=== PATIENT | female | born 1940 | race Caucasian/White ===

== ENCOUNTER 2021-10-01 07:14 | Outpatient (CLI) | payer BC, SELFPAY ==
--- NOTE | 2021-10-01 08:53 | W.ANESCHARGE ---
Anesthesia Charges Start Date/Time Anesthesia Start Date: 10/01/21 Anesthesia Start Time: 08:05 Stop Date/Time Anesthesia Stop Date: 10/01/21 Anesthesia Stop Time: 08:50 Summary Emergency: No Extremes of Age: Over 70-CPT [id number]
--- NOTE | 2021-10-01 10:06 | W.ANESCHARGE ---
Anesthesia Charges Start Date/Time Anesthesia Start Date: 10/01/21 Anesthesia Start Time: 08:05 Stop Date/Time Anesthesia Stop Date: 10/01/21 Anesthesia Stop Time: 08:50 Summary Emergency: No
== END 2021-10-01 07:15 | disposition home or self-care (01) ==
PROVIDERS: PCP Family Medicine; Visit Provider Surgery
DX: K92.1 Melena (principal); K63.5 Polyp of colon; K57.30 Diverticulosis of large intestine without perforation or abscess without bleeding
CPT/HCPCS: 45385; 811; 88305; 99100; J2704

== ENCOUNTER 2021-10-01 14:13 | Outpatient (CLI) | payer BC, SELFPAY | END 2021-10-01 14:14 | disposition home or self-care (01) | LOC: AMB 10-08 09:15 | PROVIDERS: PCP Family Medicine; Visit Provider Family Medicine | DX: R11.2 Nausea with vomiting, unspecified (principal); R68.83 Chills (without fever) | CPT/HCPCS: A0425; A0427 ==

== ENCOUNTER 2021-10-01 14:39 | Emergency (ER) | payer BC, SELFPAY ==
[2021-10-01 14:43] VITALS: BP 138/95; PULSE 81; TEMP 37.2; O2SAT 92; BMI 25.2
[2021-10-01 15:00] VITALS: BP 131/94
--- NOTE | 2021-10-01 15:11 | ED_ITS ---
HPI - Nausea/Vomiting/Diarrhea General Time Seen by Provider: 15:10 Date Seen: 10/01/21 Chief complaint: Nausea/Vomiting Stated complaint: Dizzy, nauseous after colonoscopy Time Seen by Provider: 10/01/21 15:04 History of Present Illness HPI Narrative: This 81-year-old female comes in by ambulance because of nausea and lightheadedness. She had a colonoscopy this morning with a bowel prep prior to that. During this time she had expected diarrhea but she was also vomiting. The colonoscopy went well. She reports that there were 3 polyps that were removed and sent to pathology. She comes in by a ambulance to place an IV and gave her 4 mg of Zofran. She arrives with normal vital signs. Related Data Allergies Allergy/AdvReac Type Severity Reaction Status Date / Time trimethoprim Allergy Intermediate Rash Verified 09/14/21 09:41 diphenhydramine Allergy Mild Hives Verified 09/14/21 09:41 Sulfa drugs Allergy Intermediate Rash Uncoded 09/14/21 09:41 Review of Systems Status of ROS: Reports: 10 or more systems reviewed and unremarkable except as noted in History and below Narrative: Constitutional: No fevers, no weight gain or loss. Eyes: No discharge. No vision changes. HENT: No congestion, no sore throat, no ear pain. Cardiovascular: No chest pain, no palpitations. Respiratory: No shortness of breath, no wheezes, no cough. Gastrointestinal: No abdominal pain. Vomiting and diarrhea as part of bowel prep for colonoscopy. Genitourinary: No dysuria, no hematuria. Musculoskeletal: Normal range of motion. Skin: No rashes, no pruritis. Neurological: No dizziness, weakness, sensory change, speech change. Endo/Heme/Allergies: No bruising or bleeding. No polydipsia. Pysch: no suicidality, no anxiety, no insomnia. All other systems reviewed and are negative. [facility] Social History Smoking Status: Former smoker What tobacco products do you use: cigarettes Smoking quit date/years: >15 years ago Do you use any of these nicotine containing products: None Second hand tobacco smoke exposure: No How often do you have a drink containing alcohol: never How often do you have six or more drinks on one occasion: Never AUDIT-C Alcohol total score: 0 Non-prescribed substance use: denies use Exam Narrative: Exam Narrative: Constitutional: Well-developed, well-nourished, no acute distress. HEENT: Normocephalic, atraumatic. Neck: Normal range of motion. Nontender. Supple. Heart: Regular. No murmurs. Normal rate. Intact distal pulses. Lungs: Clear to auscultation. No chest discomfort. No wheezes, rhonchi, or rales. Abdomen: Normal bowel sounds. Nontender. No rebound tenderness. Genitalia: Deferred. Back: No midline tenderness. Normal range of motion. Extremities: Normal range of motion. No injury. Skin: Intact. No rash. Warm. No erythema or pallor. Neurologic: No altered sensation. No weakness. Alert and oriented. Psychiatric: No suicidality. No anxiety or depression. No insomnia. Nursing notes and vitals signs are reviewed. Const: Vital Signs, click to edit/add: Vital Signs - 24 hr 10/01/21 14:43 Temperature 98.9 F Pulse Rate [Left P ulse Oximeter] 81 Blood Pressure [Le ft Upper Arm] 138/95 H Pulse Oximetry 92 Course Vital Signs Vital signs: Initial Vital Signs Temperature 98.9 F 10/01/21 14:43 Temperature Source Temporal Artery Scan 10/01/21 14:43 Pulse Rate 81 10/01/21 14:43 Blood Pressure 138/95 H 10/01/21 14:43 Blood Pressure Mean 109 10/01/21 14:43 Blood Pressure Position Supine 10/01/21 14:43 Pulse Oximetry 92 10/01/21 14:43 Oxygen Delivery Method 10/01/21 14:43 Vital Signs Temperature 98.9 F 10/01/21 14:43 Pulse Rate 81 10/01/21 14:43 Blood Pressure 138/95 H 10/01/21 14:43 Pulse Oximetry 92 10/01/21 14:43 Temperature 98.9 F 10/01/21 14:43 Pulse Rate 81 10/01/21 14:43 Blood Pressure 138/95 H 10/01/21 14:43 Pulse Oximetry 92 10/01/21 14:43 MDM - Nausea/Vomiting/Diarrhea MDM Narrative Medical decision making narrative: This patient comes in feeling lightheaded and nauseated after having a colonoscopy. She had diarrhea as expected as part of the bowel prep but also had vomiting. An IV had been established by a ambulance so she received a L of normal saline intravenously here. She arrives with vital signs in normal range. She is not reporting symptoms of lightheadedness and vomiting or nausea currently. She was able to take fluids orally. She is OK to return home to continue current plans. Discharge Plan Discharge Clinical Impression: Dehydration Patient Disposition: Home, Self-Care Condition: Stable Instructions: Dehydration (ED) Additional Instructions: Volume depletion after colonoscopy. Continue current plans. Follow up with MD or return if worsening symptoms happen. Follow Up/Referrals: Zrui Celeste MD [Primary Care Provider] - Stand Alone Forms: [employer] Info Instructions
[2021-10-01 15:30] VITALS: BP 126/58; PULSE 81; O2SAT 91
[2021-10-01 16:00] VITALS: BP 107/51; PULSE 77; O2SAT 91
[2021-10-01] MEDS: 0.9 % SODIUM CHLORIDE 1000 ml 1,000 ML IV (16:05)
[2021-10-01 16:30] VITALS: BP 124/53; PULSE 78; O2SAT 90
== END 2021-10-01 16:53 | disposition home or self-care (01) ==
PROVIDERS: Emergency Provider Emergency Medicine Emergency Medical Services; PCP Family Medicine
DX: E86.0 Dehydration (principal); E86.9 Volume depletion, unspecified
CPT/HCPCS: 96360; 99283; 99284; J7030

== ENCOUNTER 2021-12-20 16:08 | Outpatient (RCR) | payer BC, SELFPAY | END 2022-11-24 12:41 | disposition home or self-care (01) | LOC: MOW 16:08 | PROVIDERS: PCP Family Medicine; Visit Provider Family Medicine | DX: Z76.0 Encounter for issue of repeat prescription (principal) | CPT/HCPCS: S5170 ==

== ENCOUNTER 2024-07-30 16:26 | Outpatient (CLI) | payer MEDICARE, BC, SELFPAY | END 2024-07-30 16:27 | disposition home or self-care (01) | LOC: AMB 08-01 10:04 | PROVIDERS: PCP Family Medicine; Visit Provider Student in an Organized Health Care Education/Training Program | DX: S09.90XA Unspecified injury of head, initial encounter (principal); W01.198A Fall on same level from slipping, tripping and stumbling with subsequent striking against other object, initial encounter; Y93.H2 Activity, gardening and landscaping; Y92.007 Garden or yard of unspecified non-institutional (private) residence as the place of occurrence of the external cause | CPT/HCPCS: A0425; A0427 ==

== ENCOUNTER 2024-07-30 16:57 | Emergency (ER) | payer MEDICARE, BC, SELFPAY ==
--- OUTSIDE RECORDS SUMMARY | 2024-07-30 16:59 | XMS_ITS | Clinical Summary ---
Author Organization [employer] [facility] Address Counts include 234 beds at the [facility] [place] [address] Care Team Providers Care Income Tax Preparer Name Role Phone Zuri Celeste MD Primary Care Provider [facility], [place] Unavailable Allergies Active Allergy Reactions Criticality Noted Date Comments Diphenhydramine Hives High Sulfamethoxazole-Trimethoprim Rash Medium 2009 Medications miscellaneous medical supply miscIndications:H TN (hypertension) As directed. 1 blood pressure CUFF for home use 1 Each 11/19/19 20 Active medication order composerIndicatio ns:Lobular breast cancer, right (HC) Breast prosthetic 1 Device 05/24/19 23 Active Post Mastectomy BraIndications:Lo bular breast cancer, right (HC) Right lobular breast cancer 6 Packet 05/24/19 23 Active aspirin (ECOTRIN) 81 mg enteric coated tablet Take 81 mg by mouth once daily. Active acetaminophen SR (Tylenol Arthritis Pain) 650 mg Extended-Release tablet Take 1,300 mg by mouth 2 times daily 12 hours apart. Active acetaminophen SR (Tylenol Arthritis Pain) 650 mg Extended-Release tablet Take 650 mg by mouth once daily in the afternoon. Active omeprazole (PRILOSEC) 20 mg Delayed-Release capsuleIndication s:Stricture and stenosis of esophagus,Dysphag ia, unspecified type Take 1 Capsule (20 mg) by mouth once daily before a meal. 90 Capsule 3 09/06/19 24 Active mirtazapine (REMERON) 15 mg tabletIndications :Anxiety Take 1 Tablet (15 mg) by mouth at bedtime. 90 Tablet 3 09/06/19 24 Active cyanocobalamin (Vitamin B-12) 1,000 mcg tabletIndications :Low vitamin B12 level Take 1 Tablet (1,000 mcg) by mouth once daily. 90 Tablet 3 09/07/19 24 Active FLUoxetine (PROZAC) 40 mg capsuleIndication s:Anxiety TAKE ONE CAPSULE BY MOUTH ONE TIME DAILY 90 Capsule 05/17/19 25 Active FLUoxetine (PROZAC) 20 mg capsuleIndication s:Anxiety TAKE ONE CAPSULE BY MOUTH EVERY DAY IN THE MORNING. 90 Capsule 06/02/19 25 Active amLODIPine 5 mg tabletIndications :HTN (hypertension) TAKE ONE TABLET BY MOUTH ONE TIME DAILY 90 Tablet 06/23/19 25 Active pravastatin 80 mg tabletIndications :Hyperlipidemia, unspecified hyperlipidemia type,Coronary artery disease involving [place] coronary artery, unspecified whether angina present, unspecified whether [place] or transplanted heart TAKE ONE TABLET BY MOUTH ONE TIME DAILY AT BEDTIME 90 Tablet 07/17/19 25 Active pravastatin (PRAVACHOL) 80 mg tabletIndications :Hyperlipidemia, unspecified hyperlipidemia type,Coronary artery disease involving [place] coronary artery, unspecified whether angina present, unspecified whether [place] or transplanted heart Take 1 Tablet (80 mg) by mouth at bedtime. 90 Tablet 1 09/06/19 24 2024 Discontinued Active Problems Problem Noted Date Diagnosed Date S/P Left hip hemiarthroplasty DOS:09/18/2022 Dr. Mora Fortune 10/28/2022 Subcapital fracture of left hip 09/18/2022 HTN (hypertension) 05/20/2021 Anxiety 05/20/2021 Lobular breast cancer, right 05/20/2021 Overview (09/18/2022): 2009: 2 tumors in right breast. Treated with mastectomy and anastrozole. 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 Delgado, dermatology Osteopenia determined by x-ray 09/29/2015 Overview (09/29/2015): Osteopenia with increased risk hip fracture per FRAX score 2015 CKD (chronic kidney disease) stage 3, GFR 30-59 ml/min 03/25/2015 Overview (05/03/2018): CREATININE (mg/dL) Date Value 05/02/2018 1.08 GFR 49 Osteoarthritis of hands, bilateral 03/24/2015 Lobular breast cancer 10/09/2014 ACP (advance care planning) 03/18/2014 Overview (06/16/2016): HCD received, see HCD 06/13/16 MARÍA Aggarwal Advance Care Planning Educator [phone] Atrial fibrillation 05/08/2012 Mucoid cyst of joint 03/23/2010 Routine general medical exam ination at a health care facility 02/16/2010 Overview (02/16/2010): dexa normal 06/2009 Adhesive capsulitis of shoulder 09/02/2009 CAD (coronary artery disease) 02/10/2009 Overview (02/11/2009): -3 months exertional chest pain,ECG had some ST depression -02/10/2009 cor angio--> 2 Tandem LISSY stents, 3 total balloons to proximal and mid LAD, balloon to D2 Other and unspecified hyperlipidemia 02/10/2009 Overview (02/10/2009): -Goal LDL < 70 -Chol: 223, T, HDL: 66, LDL: 133 -02/10/2009 started on simvastatin -already on fish oil Hallux valgus (acquired) 03/13/2007 Unspecified essential hypertension 01/30/2007 Paroxysmal supraventricular tachycardia 01/31/20 07 Overview (01/30/2007): short runs of supraventricular tachycardia noted on holter 1999. responding to bete odessa. note echocardiogram unremarkable Resolved Problems Problem Noted Date Diagnosed Date Resolved Date Changing skin lesion 03/15/2013 014 Lobular breast cancer 03/09/20092014 Overview (03/09/2009): 2 areas right breast, ER/UT positive, HER2 amplification negative Chest pain on exertion 02/10/200903/17 Overview (02/10/2009): -3 month hx of chest pain and shortness of breath on exertion -02/10/[address] depression in inferior-lateral leads, After walking up and down the [place] with chest pain, [address] depression in leads V5 and V6. -cor angio 02/10/2009 Overweight(278.02) 02/10/2009 0 Overview (02/10/2009): -BMI 31 Chest pain, unspecified 02/06/200906/2008 Skin lesion 02/06/2009 03/18/2014 Blood in stool 02/06/2009 03/17/2009 Encounters Date Type Department Care Team Description 07/15/2024 Refill [facility] [address] [place] [address] Zuri Celeste MD Refill Request (Pravastatin) 06/20/2024 11:30 AM CDT Office Visit [facility] [address] [place] [address] Laurence Carter PA Fall (06/16/24) 06/20/2024 Refill [facility] [address] [place] [address] Zuri Celeste MD Refill Request (Amlodipine) 06/20/2024 Nurse Triage [facility] [address] [place] [address] Laurence Carter PA Pain (Left hip and back) 06/20/2024 Travel 06/04/2024 Refill [facility] [address] [place] [address] Zuri Celeste MD Refill Request (Fluoxetine) 05/31/2024 Refill [facility] [address] [place] [address] Zuri Celeste MD Refill Request (Fluoxetine) 05/16/2024 Refill [facility] [address] [place] [address] Zuri Celeste MD Refill Request (Fluoxetine) from Last 3 Months Immunizations Immunization Administration Dates Next Due AMB INFLUENZA IIV3 (AGE 65+ YRS) PF (Flu Clinic Only) 01/25/2017 AMB Influenza, IIV3 (Age >=3 years)(Flu Clinic Only) 01/24/2011 Amb Influenza, Inact (High-d ose) (Flu Clinic Only) 12/18/2013 COVID-19 vaccine (Moderna 100mcg/0.5mL) PF, MDV 05/06/2020,04/08/2020 Influenza A (H1N1), Inactiva maria l (Age >=3 Years) 03/17/2009 Influenza RIV4 (Age 18+ Year s) PRESERV FREE 01/24/2019 Influenza, High-dose Inactivated 03/30/2016,10/2014 Influenza, High-dose Quadriv alent Inactivated 01/11/2021 Influenza, IIV3 (Age >=3 years) 01/12/20 10,03/17/2009,02/05/2008,2006,01/30/2006 Influenza, IIV4 (Age 6-35 Mos) 01/03/2013 Influenza, Inactivated AIIV4 (Age 65+ Years) Preserv Free 01/31/2022,01/15/2020 Influenza, Inactivated IIV3 (Age 65+ Years) Preserv Free 05/02/2018 Pneumococcal Poly,23-Valent (Pneumovax) 02/05/2008 Pneumococcal conj 13-Valent (Prevnar 13) 03/31/2015 Td, Preservative Free (age > = 7 Years) 09/14/2005 Tdap 05/24/2022,03/07/2012 Zoster (Zostavax-ZVL, live) 03/27/2009 Family History Medical History Relation Name Comments Hyperlipidemia Brother 1 Alcohol/Drug Brother 2 Heart Disease Father Cancer-breast Maternal Aunt Cancer-breast Paternal Aunt Cancer-breast Sister 1 Hyperlipidemia Sister 1 Cancer-breast Sister 2 Relation Name Status Comments Brother 1 Brother 2 Father (Age 63) [place] Maternal Aunt Mother parkinsons dise ase Paternal Aunt Sister 1 Sister 2 Social History Tobacco Use Types Packs/Day Years Used Date Smoking Tobacco: Former Cigarettes 1 3 0 03/27/1966 - 03/27/1969 Smokeless Tobacco: Never Tobacco Cessation:Counseling Given: Yes Comments:1 ppd. quit when she was 30. Alcohol Use Standard Drinks/Week Comments Not Currently 0 (1 standard drink = 0.6 oz pur e alcohol) PHQ-2 Answer Date Recorded PHQ-2 TOTAL SCORE 0 09/06/2023 Social Connections Answer Date Recorded Frequency of Communication with Friends and Fami ly 0 11/15/2022 Financial Resource Strain Answer Date R ecorded Difficulty of Paying Living Expenses 3 11/15/2022 Difficulty of Paying Living Expenses Not on file 11/15/2022 Food Insecurity Answer Date Recorded Worried About Running Out of Food in the Last Ye ar 1 11/15/2022 Transportation Needs Answer Date Record ed Lack of Transportation (Medical) 1 11/15/2022 Housing Stability Answer Date Recorded Unable to Pay for Housing in the Last Year 1 11/15/2022 Comments No Sex and Gender Information Value Date Recorded Sex Assigned at Not on file Legal Sex Female 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 Gender Identity Not on file Sexual Orientation Not on file 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 Not on file Not on file Not on file Obstetrics History Para Term AB IAB SAB Ectopic Multiple Livin g Live Births 6 5 5 1 1 4 Date Outcome GA Total Labor Labor/2nd/3rd Weight Sex Type Anes PTL Sudha A1 A5 Name Clin Term Term Term Term Term SAB Last Filed Vital Signs Vital Sign Reading Time Taken Comments Blood Pressure 145/82 06/20/2024 11:24 AM CDT Pulse 85 06/20/2024 11:24 AM CDT Temperature 36.6 C (97.8 F) 12/06/2022 1:02 PM CDT Respiratory Rate 16 12/06/2022 1:02 PM CDT Oxygen Saturation 95% 06/20/2024 11:24 AM CDT Inhaled Oxygen Concentration - - Weight 69.9 kg (154 lb) 12/20/2023 10:44 AM CDT Height 158 cm (5' 2.21) 09/06/2023 1:16 PM CDT Body Mass Index 27.98 09/06/2023 1:16 PM CDT Plan of Treatment Upcoming Encounters Date Type Department Care Team (Late st Contact Info) Description 09/12/2024 9:10 AM CDT Office Visit [facility] [address] [place] [address] Zuri Celeste MD [address] [place] [address] Health Maintenance Due Date Last Done Comments Zoster (shingles) series for age 50+ (2 of 3) 05/22/2009 03/27/2009 RSV vaccine for adults or (1 - 1-dose 75+ series) 01/04/2015 COVID-19 vaccine series ( season) 2023 02/15/2021, 05/06/2020, 04/08/2020 BMI (ht and wt on same day) for age 18+ 09/05/2024 09/06/2023, 05/24/2022, 05/20/2021, Additional history exists Depression screening for age 12+ 09/06/2024 09/07/2023, 09/07/2023, 09/06/2023, Additional history exists Medicare Wellness for age 65+ 09/06/2024, 05/24/2022, 05/20/2021, Additional history exists Influenza Vaccine (Season Ended) 2024 01/31/2022, 01/15/2020, 01/24/2019, Additional history exists Tetanus booster 05/24/2032 05/24/2022, 02/24, 09/14/2005 Pneumococcal series for age 50+ Completed 6, 02/05/2008 DEXA/DXA scan for age 65+ Completed 2017, 09/17/2015, 07/23/2009 Tdap Completed 05/24/2022, 03/07/2012 Medical Devices Implanted Type Area Applications Processor Device Identifier Shelf Expiration Date Model / Serial / Lot Sleeve Hip +4 Tandem - [id number] Implanted:Qty: 1 on 09/18/2022 by Mora Fortune MD at [facility] Total Joint Left: Hip [employer] 12/27/2031 [id number] / / [id number] Head Hip Od45mm Tandem Unipolar Co Cr - [id number] Implanted:Qty: 1 on 09/18/2022 by Mora Fortune MD at [facility] Total Joint Left: Hip [employer] 08/16/2032 [id number] / / [id number] Cable Hip 2mm [facility] [employer] Vitallium - [id number] Implanted:Qty: 1 on 09/18/2022 by Mora Fortune MD at [facility] Left: Hip [employer] 05/28/2027 [id number] / / [id number] Stem Hip Sz 5 Anthology Std [employer]ors - [id number] Implanted:Qty: 1 on 09/18/2022 by Mora Fortune MD at [facility] Left: Hip [employer] 12/14/2031 [id number] / / [id number] Procedures Procedure Name Priority Date/Time Associated Diagnosis Comments XR DXA BONE DENSITY 2 SITES AXIAL Routine 09/11/2017 10:22 AM CDT Menopause from Last 3 Months or Most Recently Relevant to Health Maintenance Results * (ABNORMAL) XR DXA BONE DENSITY 2 SITES AXIAL (09/11/2017 10:22 AM CDT) Anatomical Region Laterality Modality Spine, HIPS, HIPL, HIPR Other Narrative 09/15/2017 4:40 PM CDT Please see scanned document for results of this study. 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 POLST 09/12/2023 POLST 01/15/2020 POLST 01/15/2020 Healthcare Directive 04/17/2019 12:00 AM Healthcare Directive 06/17/2016 2:48 PM POLST 01/20/2020 7:11 PM POLST 01/20/2020 7:11 PM * Full Code (Latest Code Status on File) Date Activated Date Inactivated Comments 09/19/2022 1:28 PM 09/21/2022 12:16 PM Question Answer Comments Code Status Discussion: Reviewed Preferences * Full Code Date Activated Date Inactivated Comments 09/18/2022 8:43 AM 09/19/2022 1:28 PM Question Answer Comments Code Status Discussion: Unable to Assess Preferences, Provider to review later * Full Code Date Activated Date Inactivated Comments 09/18/2022 8:43 AM 09/18/2022 8:43 AM Question Answer Comments Code Status Discussion: Reviewed Preferences * Full Code Date Activated Date Inactivated Comments 02/17/2020 12:54 PM 02/17/2020 3:34 PM Question Answer Comments Code Status Discussion: Not Discussed * Full Code Date Activated Date Inactivated Comments 02/10/2009 1:00 PM 02/11/2009 3:40 PM Care Teams Income Tax Preparer Relationship Specialty Start Date End Date Zuri Celeste MD [address] [place] [address] PCP - General Family Practice 03/13/[address] [address] 10/11/22
[2024-07-30 17:08] VITALS: BP 166/80; PULSE 78; RESP 16; TEMP 36.4; O2SAT 98
--- NOTE | 2024-07-30 17:34 | CRLHL7_ITS ---
For Patients: As a result of the Cures Act, medical imaging exams and procedure reports are released immediately into your electronic medical record. You may view this report before your referring provider. If you have questions, please contact your health care provider. INDICATION: Face injury from Fall TECHNIQUE: CT maxillofacial without i.v. contrast. Coronal and sagittal reformats were obtained. COMPARISON: None FINDINGS: Bone: No acute fractures or aggressive bone lesions are identified. Joint: The temporomandibular joints are unremarkable in appearance. 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 Mild mucosal thickening is seen in the anterior right ethmoid air cells. Hypoplasia of the right frontal sinus is noted. The ostiomeatal units are patent. The nasal turbinates are normal. The nasal septum is midline and intact. Orbit: The patient is status post prior bilateral cataract removal. The visualized orbits are grossly unremarkable. Soft tissue: Soft tissue swelling with soft tissue gas and subcutaneous hematoma is present over the left frontal region and left temporal region. IMPRESSION: 1. No acute osseous injuries or abnormalities are seen. Dictated by Julio Carias MD @ 07/30/2024 7:16:53 PM Please note that all CT scans at this facility use dose modulation, iterative reconstruction, and/or weight-based dosing when appropriate to reduce radiation dose to as low as reasonably achievable. Dictated by: Julio Carias MD @ 07/30/2024 19:18:23 (Electronically Signed)
--- NOTE | 2024-07-30 17:34 | CRLHL7_ITS ---
For Patients: As a result of the Century Cures Act, medical imaging exams and procedure reports are released immediately into your electronic medical record. You may view this report before your referring provider. If you have questions, please contact your health care provider. INDICATION: Head injury from Fall TECHNIQUE: CT Head without i.v. contrast. Coronal and sagittal reformats were obtained. COMPARISON: 03/02/2019 FINDINGS: CSF space: Unremarkable for age. Brain: No evidence of mass, acute infarction or hemorrhage is seen. No mass-effect or midline shift is seen. Mild diffuse cortical atrophy is noted. The brain parenchyma is otherwise normal in appearance with preservation of the brooks-white matter junction. Calvarium: Opacification with wall thickening of a diminutive right maxillary sinus is present which may be due to silent sinus syndrome. Mild mucosal thickening is seen in the anterior right ethmoid air cells. The mastoid air cells are clear. The visualized orbits are grossly unremarkable. The calvarium is unremarkable in appearance with no fractures identified. Soft tissue swelling with subcutaneous hematoma and soft tissue gas present over the left temporal region and left frontal region. IMPRESSION: 1. No evidence of acute infarction, intracranial hemorrhage, or mass-effect seen. Dictated by Julio Carias MD @ 07/30/2024 7:08:15 PM Please note that all CT scans at this facility use dose modulation, iterative reconstruction, and/or weight-based dosing when appropriate to reduce radiation dose to as low as reasonably achievable. Dictated by: Julio Carias MD @ 07/30/2024 19:08:20 (Electronically Signed)
--- NOTE | 2024-07-30 17:34 | CRLHL7_ITS ---
For Patients: As a result of the Century Cures Act, medical imaging exams and procedure reports are released immediately into your electronic medical record. You may view this report before your referring provider. If you have questions, please contact your health care provider. Indication: Fall Technique: Three views of the left shoulder Comparison: Chest radiograph on March 02, 2019 Findings/Impression: Age-indeterminate, nondisplaced fracture of the distal left clavicle near the acromioclavicular joint. No additional fractures or malalignment. 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 No suspicious osseous lesions. The soft tissues are unremarkable. Dictated by Raf Gaming MD @ 07/30/2024 7:35:40 PM (Electronically Signed)
--- NOTE | 2024-07-30 17:35 | ED.FALL ---
HPI - Fall General Chief Complaint: Fall/Minor Trauma Stated Complaint: Fall Time Seen by Provider: 07/30/24 17:18 History of Present Illness HPI Narrative: This 84-year-old female comes in for evaluation of injuries from a fall that occurred about an hour prior to arrival. She was out in the garden planting some plants and when she got up she tripped and fell hitting the left side of her head. She did not have loss of consciousness and was able to get up and ambulate. She does have large bruising and swelling over the lateral aspect of her temporal region and there is a small disruption of her skin. She is not showing any sign of neurologic deficit and does not report a headache. She does not report any neck pain. She does have some pain in her left shoulder but is able to move her arm. Related Data Home Medications ?Medication ?Instructions ?Recorded ?Confirmed amlodipine 5 mg tablet 5 mg PO DAILY 07/30/24 07/30/24 donepezil 5 mg tablet mg PO 07/30/24 fluoxetine 20 mg capsule 20 mg PO QAM 07/30/24 07/30/24 fluoxetine 40 mg capsule 40 mg PO DAILY 07/30/24 07/30/24 mirtazapine 15 mg tablet 15 mg PO QPM 07/30/24 07/30/24 omeprazole 20 mg capsule,delayed 20 mg PO DAILY 07/30/24 07/30/24 release pravastatin 80 mg tablet 80 mg PO DAILY 07/30/24 07/30/24 Allergies Allergy/AdvReac Type Severity Reaction Status Date / Time trimethoprim Allergy Intermediate Rash Verified 07/30/24 17:00 diphenhydramine Allergy Mild Hives Verified 07/30/24 17:00 Review of Systems Status of ROS: Reports: 10 or more systems reviewed and unremarkable except as noted in History and below Narrative: Constitutional: No fevers, no weight gain or loss. Eyes: No discharge. No vision changes. HENT: No congestion, no sore throat, no ear pain. Cardiovascular: No chest pain, no palpitations. Respiratory: No shortness of breath, no wheezes, no cough. Gastrointestinal: No abdominal pain, no vomiting, no diarrhea. Genitourinary: No dysuria, no hematuria. Musculoskeletal: Normal range of motion. Skin: No rashes, no pruritis. Neurological: No dizziness, weakness, sensory change, speech change. Endo/Heme/Allergies: No bruising or bleeding. No polydipsia. Pysch: no suicidality, no anxiety, no insomnia. All other systems reviewed and are negative. [facility] Social History (Updated 10/01/21 @ 16:32 by Stefan Meléndez MD) Smoking Status: Former smoker What tobacco products do you use: cigarettes Smoking quit date/years: >15 years ago Do you use any of these nicotine containing products: None Second hand tobacco smoke exposure: No How often do you have a drink containing alcohol: never How often do you have six or more drinks on one occasion: Never AUDIT-C Alcohol total score: 0 Non-prescribed substance use: denies use Exam Narrative: Exam Narrative: Constitutional: Well-developed, well-nourished, no acute distress. HEENT: Swelling and bruising around the lateral aspect of the left eye and into the temporal region. Small abrasion also in this area but no active bleeding. Eye movements are normal. Neck: Normal range of motion. Nontender. Supple. Heart: Regular. No murmurs. Normal rate. Intact distal pulses. Lungs: Clear to auscultation. No chest discomfort. No wheezes, rhonchi, or rales. Abdomen: Normal bowel sounds. Nontender. No rebound tenderness. Genitalia: Deferred. Back: No midline tenderness. Normal range of motion. Extremities: Normal range of motion. No injury. Skin: Intact. No rash. Warm. No erythema or pallor. Neurologic: No altered sensation. No weakness. Alert and oriented. No facial asymmetry. Tongue is midline. [place]-ao-[id number] is normal. No pronator drift. Cupola Man strength is equal bilaterally. Able to raise each leg from the bed. Psychiatric: No suicidality. No anxiety or depression. No insomnia. Nursing notes and vitals signs are reviewed. Const: Vital Signs, click to edit/add: Vital Signs - 24 hr 07/30/24 17:08 07/30/24 18:00 07/30/24 18:08 Temperature 97.6 F Pulse Rate 70 Pulse Rate [Pulse Oximeter] 78 Respiratory Rate 16 Blood Pressure [Le ft Upper Arm] 166/80 H 170/71 H Pulse Oximetry 98 97 Oxygen Delivery Me thod Room Air Course Vital Signs Vital signs: Initial Vital Signs Temperature 97.6 F 07/30/24 17:08 Temperature Source Temporal Artery Scan 07/30/24 17:08 Pulse Rate 78 07/30/24 17:08 Respiratory Rate 16 07/30/24 17:08 Blood Pressure 166/80 H 07/30/24 17:08 Blood Pressure Mean 108 H 07/30/24 17:08 Pulse Oximetry 98 07/30/24 17:08 Oxygen Delivery Method Room Air 07/30/24 17:08 Vital Signs Temperature 97.6 F 07/30/24 17:08 Pulse Rate 78 07/30/24 17:08 Respiratory Rate 16 07/30/24 17:08 Blood Pressure 166/80 H 07/30/24 17:08 Pulse Oximetry 98 07/30/24 17:08 Oxygen Delivery Method Room Air 07/30/24 17:08 Temperature 97.6 F 07/30/24 17:08 Pulse Rate 70 07/30/24 18:08 Respiratory Rate 16 07/30/24 17:08 Blood Pressure 170/71 H 07/30/24 18:00 Pulse Oximetry 97 07/30/24 18:08 Oxygen Delivery Method Room Air 07/30/24 17:08 MDM - Fall MDM Narrative Medical decision making narrative: This patient comes in for evaluation of injuries from a fall. CT scan of the head and facial bones is obtained because of significant swelling and bruising on the left side of her head. There is no evidence of intracranial injury or fracture. Additionally x-ray of the left shoulder is obtained and shows no acute findings. There is report of age indeterminate distal clavicle fracture. The patient states that she does remember injuring her left shoulder in the past. The patient is not complaining much of pain and feels that she is okay to return home. She does have some medicine that can be used for symptomatic relief if needed. Imaging Data CT scan - head: Radiologist's impression: FINDINGS: CSF space: Unremarkable for age. Brain: No evidence of mass, acute infarction or hemorrhage is seen. No mass-effect or midline shift is seen. Mild diffuse cortical atrophy is noted. The brain parenchyma is otherwise normal in appearance with preservation of the brooks-white matter junction. Calvarium: Opacification with wall thickening of a diminutive right maxillary sinus is present which may be due to silent sinus syndrome. Mild mucosal thickening is seen in the anterior right ethmoid air cells. The mastoid air cells are clear. The visualized orbits are grossly unremarkable. The calvarium is unremarkable in appearance with no fractures identified. Soft tissue swelling with subcutaneous hematoma and soft tissue gas present over the left temporal region and left frontal region. IMPRESSION: 1. No evidence of acute infarction, intracranial hemorrhage, or mass-effect seen. XR L Shoulder: Radiologist's impression: Age-indeterminate, nondisplaced fracture of the distal left clavicle near the acromioclavicular joint. No additional fractures or malalignment. 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 No suspicious osseous lesions. Discharge Plan Discharge Clinical Impression: Closed head injury Patient Disposition: Home w/ Parent or Adult Condition: Stable Additional Instructions: Continue current plans. Use [id number] medicines as needed and directed. Follow up with MD return if worsening. Prescriptions: No Action fluoxetine 40 mg capsule 40 mg PO DAILY donepezil 5 mg tablet PO amlodipine 5 mg tablet 5 mg PO DAILY pravastatin 80 mg tablet 80 mg PO DAILY omeprazole 20 mg capsule,delayed release(DR/EC) 20 mg PO DAILY mirtazapine 15 mg tablet 15 mg PO QPM fluoxetine 20 mg capsule 20 mg PO QAM Follow Up/Referrals: Zuri Celeste MD [Primary Care Provider] - Stand Alone Forms: LYYN Instructions
--- OUTSIDE RECORDS SUMMARY | 2024-07-30 17:41 | XMS_ITS | Clinical Summary ---
Author Organization [facility] Address [facility] [place] [address] Care Team Providers Care Interior Wall Assembler Name Role Phone Zuri Celeste MD Primary Care Provider [facility], [place] Unavailable Allergies Active Allergy Reactions Criticality Noted [...] :Hyperlipidemia, unspecified hyperlipidemia type,Coronary artery disease involving [place] coronary artery, unspecified whether angina present, unspecified whether [place] or transplanted heart TAKE ONE TABLET BY MOUTH ONE TIME DAILY AT BEDTIME 90 Tablet 07/17/19 25 Active pravastatin (PRAVACHOL) 80 mg tabletIndications :Hyperlipidemia, unspecified hyperlipidemia type,Coronary artery disease involving [place] coronary artery, unspecified whether angina present, unspecified whether [place] or transplanted heart Take 1 Tablet (80 [...] 06/13/16 MARÍA Aggarwal Advance Care Planning Educator [phone] Atrial fibrillation 05/08/2012 Mucoid cyst of joint [...] 03/09/20092014 Overview (03/09/2009): 2 areas right breast, ER/CT positive, HER2 amplification negative Chest pain on [...] Type Department Care Team Description 07/15/2024 Refill [facility] [address] [place] [address] Zuri Celeste MD Refill Request (Pravastatin) 06/20/2024 11:30 AM CDT Office Visit [facility] [address] [place] [address] Laurence Carter PA Fall (06/16/24) 06/20/2024 Refill [facility] [address] [place] [address] Zuri Celeste MD Refill Request (Amlodipine) 06/20/2024 Nurse Triage [facility] [address] [place] [address] Laurence Carter PA Pain (Left hip and back) 06/20/2024 Travel 06/04/2024 Refill [facility] [address] [place] [address] Zuri Celeste MD Refill Request (Fluoxetine) 05/31/2024 Refill [facility] [address] [place] [address] Zuri Celeste MD Refill Request (Fluoxetine) 05/16/2024 Refill [facility] [address] [place] [address] Zuri Celeste MD Refill Request (Fluoxetine) from [...] Brother 1 Brother 2 Father (Age 63) [place] Maternal Aunt Mother parkinsons dise ase Paternal [...] on file 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 Gender Identity Not on file Sexual Orientation [...] Description 09/12/2024 9:10 AM CDT Office Visit [facility] [address] [place] [address] Zuri Celeste MD [address] [place] [address] Health Maintenance Due Date Last Done Comments [...] 05/24/2022, 03/07/2012 Medical Devices Implanted Type Area Voting Machine Repairer Device Identifier Shelf Expiration Date Model / Serial / Lot Sleeve Hip +4 Tandem - [id number] Implanted:Qty: 1 on 09/18/2022 by Mora Fortune MD at [facility] Total Joint Left: Hip [employer] 12/27/2031 [id number] / / [id number] Head Hip Od45mm Tandem Unipolar Co Cr - [id number] Implanted:Qty: 1 on 09/18/2022 by Mora Fortune MD at [facility] Total Joint Left: Hip [employer] 08/16/2032 [id number] / / [id number] Cable Hip 2mm [facility] [employer]ead[employer] Vitallium - [id number] Implanted:Qty: 1 on 09/18/2022 by Mora Fortune MD at [facility] Left: Hip [employer] 05/28/2027 [id number] / / [id number] Stem Hip Sz 5 [employer] Std [employer] - [id number] Implanted:Qty: 1 on 09/18/2022 by Mora Fortune MD at [facility] Left: Hip [employer] 12/14/2031 [id number] / / [id number] Procedures Procedure Name Priority Date/Time Associated Diagnosis [...] Relevant to Health Maintenance Insurance [employer] [place] BLUE MR PB ONLY [employer] P[employer] Advance Directives Documents on File Type Date Recorded 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
[2024-07-30 18:00] VITALS: BP 170/71
[2024-07-30 18:08] VITALS: PULSE 70; O2SAT 97
== END 2024-07-30 20:02 | disposition home or self-care (01) ==
PROVIDERS: Emergency Provider Emergency Medicine Emergency Medical Services; PCP Family Medicine
DX: S09.90XA Unspecified injury of head, initial encounter (principal); M25.512 Pain in left shoulder; W01.198A Fall on same level from slipping, tripping and stumbling with subsequent striking against other object, initial encounter; Y93.H2 Activity, gardening and landscaping; Y92.007 Garden or yard of unspecified non-institutional (private) residence as the place of occurrence of the external cause
CPT/HCPCS: 70450; 70486; 73030; 99284